=== PATIENT | male | born 1935 | race Caucasian/White ===

== ENCOUNTER 2016-11-04 07:47 | Emergency (ER) | payer MEDICARE ==
[2016-11-04] MEDS ORDERED: Albuterol HFA INHALER* 8 gm MDI INH ONE (08:15)
[2016-11-04 08:19] VITALS: BP 139/67
--- NOTE | 2016-11-04 08:31 | UC ---
Respiratory Complaint HPI - HPI Summary HPI Summary: 80 yo male with cough and wheezing x 3 days low grade temp no CP no johnson or myalgias out of rescue inhaler - History of Current Complaint Chief Complaint: UCRespiratory Stated Complaint: SINUS,COUGH Time Seen by Provider: 11/04/16 08:08 Hx Obtained From: Patient Onset/Duration: Gradual Onset, Lasting Days Timing: Constant Severity Initially: Mild Severity Currently: Mild Pain Intensity: 2 Pain Scale Used: 0-10 Numeric Character: Cough: Nonproductive Aggravating Factors: Recumbent Position Alleviating Factors: Nothing Associated Signs And Symptoms: Positive: Fever - jessie, Wheezing Related History: Similar Episode/Dx as: - bronchitis - Allergies/Home Medications Allergies/Adverse Reactions: Allergies Allergy/AdvReac Type Severity Reaction Status Date / Time bee sting Allergy Unknown Unknown Uncoded 11/04/16 07:58 Reaction Details environmental allergy Allergy Runny Nose Uncoded 11/04/16 07:58 Home Medications: Home Medications Budesonide/Formote 160/4.5(NF) [Symbicort 160/4.5 (NF)] 1 puff BID 11/04/16 [ History Confirmed 11/04/16] PMH/Surg Hx/FS Hx/Imm Hx Previously Healthy: Yes Cardiovascular History: Hypertension Respiratory History: Asthma, Bronchitis, Pneumonia Other History Of: Anticoagulant Therapy - ASA 81 mg - Surgical History Surgical History: Yes Surgery Procedure, Year, and Place: gall bladder x 2 - Family History Known Family History: Positive: Cardiac Disease, Hypertension, Diabetes, Respiratory Disease - Social History Alcohol Use: None Substance Use Type: None Smoking Status (MU): Never Smoked Tobacco Have You Smoked in the Last Year: No - Immunization History Most Recent Influenza Vaccination: Fall 2015 Most Recent Tetanus Shot: UTD Most Recent Pneumonia Vaccination: UTD Review of Systems Constitutional: Fever - jessie Skin: Negative Eyes: Negative ENT: Nasal Discharge Respiratory: Cough, Other - wheezing Cardiovascular: Negative Gastrointestinal: Negative Genitourinary: Negative Motor: Negative Neurovascular: Negative Musculoskeletal: Negative Neurological: Negative Psychological: Negative All Other Systems Reviewed And Are Negative: Yes Physical Exam Triage Information Reviewed: Yes Appearance: Well-Appearing, No Pain Distress, Well-Nourished Vital Signs: Initial Vital Signs Temp 99 F 11/04/16 08:02 Pulse 80 11/04/16 08:02 Resp 18 11/04/16 08:02 BP 139/67 11/04/16 08:02 Pulse Ox 99 11/04/16 08:02 Eyes: Positive: Conjunctiva Clear ENT: Positive: TMs normal - right normal/left unable to vis due to cerumen. Negative: Hearing grossly normal, Nasal congestion, Nasal drainage, Trismus, Other: Neck: Positive: Supple, Nontender Respiratory: Positive: Lungs clear, Normal breath sounds, No respiratory distress, Wheezing Cardiovascular: Positive: RRR Musculoskeletal: Positive: ROM Intact, No Edema Neurological: Positive: Alert Psychological Exam: Normal Skin Exam: Normal UC Diagnostic Evaluation - Laboratory O2 Sat by Pulse Oximetry: 99 - normal/not hypoxic Respiratory Course/Dx - Differential Dx/Diagnosis Provider Diagnoses: acute bronchitis Discharge - Discharge Plan Condition: Stable Disposition: HOME Prescriptions: Amoxicillin PO (*) [Amoxicillin 875 MG (*)] 875 mg PO BID #20 tab Prednisone [Deltasone] 20 mg PO DAILY #10 tab Patient Education Materials: Acute Bronchitis (ED) Referrals: Allen Banda DO [Primary Care Provider] - 4 Days (if not better) Additional Instructions: recheck for new or worsening symptoms recheck if still febrile in 48 hrs use albuterol inhalers as directed
== END 2016-11-04 08:40 | disposition home or self-care (01) ==
LOC: UCCORT 07:47
DX: J20.9 Acute bronchitis, unspecified (principal)
CPT/HCPCS: 99213; G0463

== ENCOUNTER 2017-05-08 09:07 | Emergency (ER) | payer MEDICARE ==
[2017-05-08 09:42] VITALS: BP 146/71
--- NOTE | 2017-05-08 10:12 | UC ---
Respiratory Complaint HPI - HPI Summary HPI Summary: COUGH X 2 DAYS + CHEST CONGESTION , RUNNY NOSE, BODY ACHES FEVER, CHILLS AND JOINT PAIN - History of Current Complaint Chief Complaint: UCGeneralIllness Stated Complaint: COUGH COLD HEADACHE Time Seen by Provider: 05/08/17 09:45 Hx Obtained From: Patient Onset/Duration: Gradual Onset, Lasting Days - 2, Still Present Timing: Constant Severity Initially: Moderate Severity Currently: Moderate Character: Cough: Nonproductive Aggravating Factors: Exertion, Deep Breaths Associated Signs And Symptoms: Positive: Fever, Chills, URI, Nasal Congestion. Negative: Calf Pain, Calf Swelling - Allergies/Home Medications Allergies/Adverse Reactions: Allergies Allergy/AdvReac Type Severity Reaction Status Date / Time bee sting Allergy Unknown Unknown Uncoded 05/08/17 09:43 Reaction Details environmental allergy Allergy Runny Nose Uncoded 05/08/17 09:43 PMH/Surg Hx/FS Hx/Imm Hx Cardiovascular History: Hypertension Other History Of: Anticoagulant Therapy - ASA 81 mg - Surgical History Surgical History: Yes Surgery Procedure, Year, and Place: gall bladder x 2 - Family History Known Family History: Positive: Cardiac Disease, Hypertension, Diabetes, Respiratory Disease - Social History Alcohol Use: None Substance Use Type: None Smoking Status (MU): Never Smoked Tobacco Have You Smoked in the Last Year: No - Immunization History Most Recent Influenza Vaccination: 5839-4441 Most Recent Tetanus Shot: UTD Most Recent Pneumonia Vaccination: 2018 Review of Systems Constitutional: Fever, Chills, Fatigue Skin: Negative Eyes: Negative ENT: Nasal Discharge Respiratory: Cough Cardiovascular: Negative Musculoskeletal: Arthralgia, Myalgia Neurological: Weakness Is Patient Immunocompromised?: No All Other Systems Reviewed And Are Negative: Yes Physical Exam Triage Information Reviewed: Yes Appearance: Well-Appearing, No Pain Distress, Well-Nourished Vital Signs: Initial Vital Signs Temp 101.7 F 05/08/17 09:37 Pulse 93 05/08/17 09:37 Resp 16 05/08/17 09:37 BP 146/71 05/08/17 09:37 Pulse Ox 98 05/08/17 09:37 Vital Signs Reviewed: Yes Eye Exam: Normal Eyes: Positive: Conjunctiva Clear ENT: Positive: Normal ENT inspection, Hearing grossly normal, Pharynx normal, Nasal drainage Neck exam: Normal Neck: Positive: Supple, Nontender, No Lymphadenopathy Respiratory: Positive: Chest non-tender, Lungs clear, Normal breath sounds Cardiovascular: Positive: RRR, No Murmur, Pulses Normal Abdominal Exam: Normal Skin Exam: Normal UC Diagnostic Evaluation - Laboratory O2 Sat by Pulse Oximetry: 98 Respiratory Course/Dx - Differential Dx/Diagnosis Provider Diagnoses: INFLUENZA Discharge - Discharge Plan Condition: Stable Disposition: HOME Prescriptions: Oseltamivir Phosphate [Tamiflu] 75 mg PO BID #10 cap Patient Education Materials: Influenza (ED) Referrals: Alvarez Diaz MD [Primary Care Provider] - 5 Days Additional Instructions: + FLU CONT. WITH REST, INCREASE FLUID, TAKE TYLENOL NEEDED FOR PAIN AND FEVER TAMIFLU 2 X PER DAY FOR 5 DAYS
== END 2017-05-08 10:38 | disposition home or self-care (01) ==
LOC: UCCORT 09:07
DX: J11.1 Influenza due to unidentified influenza virus with other respiratory manifestations (principal); I10 Essential (primary) hypertension; Z79.82 Long term (current) use of aspirin
CPT/HCPCS: 87502; 99212; G0463